=== PATIENT | female | born 2000 | race African-American/Black ===

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

== ENCOUNTER 2018-07-12 07:20 | Inpatient (IN) ==
[2018-07-12 07:47] LABS: URINE SOURCE VOIDED
[2018-07-12 07:49] LABS: BILIRUBIN URINE NEGATIVE (NEGATIVE); BLOOD URINE 4+ (NEGATIVE); CLARITY SL. CLOUDY (CLEAR); COLOR YELLOW; GLUCOSE URINE NEGATIVE (NEGATIVE); KETONE URINE NEGATIVE (NEGATIVE); LEUKOCYTES URINE 1+ (NEGATIVE); NITRITE URINE NEGATIVE (NEGATIVE); PROTEIN URINE 2+(100 mg/dL) mg/dL (NEGATIVE); SP GRAVITY URINE 1.015; UROBILINOGEN URINE NORMAL
[2018-07-12] MEDS ORDERED: TYLENOL PO PRN (08:45)
[2018-07-12] MEDS ORDERED: ZOFRAN IV PRN (08:45)
[2018-07-12] MEDS ORDERED: PITOCIN 30 UNITS/NS 30 UNIT/500 ML IV.SOLN IV SCH ×2 (08:45→16:30)
[2018-07-12] MEDS ORDERED: PEPCID IV PRN (08:45)
[2018-07-12] MEDS ORDERED: REGLAN PO ONE (08:45)
[2018-07-12] MEDS ORDERED: PEPCID PO PRN (08:45)
[2018-07-12] MEDS ORDERED: PEPCID PO ONE (08:45)
[2018-07-12] MEDS ORDERED: KEFZOL 1 GM/D5W 1 GM/50 ML IVPB IV PRN (08:45)
[2018-07-12] MEDS ORDERED: LR 500 ML IV ONE (08:45)
[2018-07-12] MEDS ORDERED: SODIUM CHLORIDE 0.9% INJ SCH (08:45)
[2018-07-12] MEDS ORDERED: MINERAL OIL PO ONE (08:50)
[2018-07-12] MEDS ORDERED: XYLOCAINE-MPF 1% INJ ONE (08:52)
[2018-07-12] MEDS ORDERED: PITOCIN 30 UNITS/NS 30 UNIT/500 ML IV.SOLN ONE (08:57)
[2018-07-12 09:01] LABS: BASO# 0.01 X1000 (0.0-0.2); BASO% 0.1 % (0.0-0.8); EOS# 0.08 X1000 (0.0-0.7); EOS% 0.7 % (0.0-10.0); HEMATOCRIT 32.9 % (37.0-47.0); HEMOGLOBIN 10.8 g/dL (12.0-16.0); IMM GRAN# 0.08 X1000 (0.0-0.04); IMM GRAN% 0.7 % (0.0-0.5); LYMPH# 2.89 X1000 (1.2-3.4); LYMPH% 24.8 % (20.5-51.1); MCHC 32.8 g/dL (33-37); MCV 88.4 FL (81-99); MONO# 0.91 X1000 (0.11-0.59); MONO% 7.8 % (1.7-9.3); MPV 11.1 FL (7.4-10.4); NEUT# 7.69 X1000 (1.4-6.5); NEUT% 65.9 % (42.2-75.2); PLT 208 X1000 (130-400); RBC 3.72 XMIL (4.2-5.4); RDW 13.6 % (11.5-14.5); WBC 11.66 X1000 (4.8-10.8)
[2018-07-12] MEDS: STADOL IV PRN ×2 (09:30→12:09)
[2018-07-12] MEDS: LR 1,000 ML IV SCH ×2 (09:31→11:19)
--- NOTE | 2018-07-12 09:57 | OB/GYN PROGRESS NOTE ---
Progress Note OB - . Patient Problems: Current Active Problems Problem Status Onset Intervention related to labor and delivery, current hospitalization Acute OB Progress Note: Laboratory Results - last 24 hr 07/12/18 07/12/18 07/12/18 07:20 07:30 08:40 WBC RBC Hgb Hct MCV MCH MCHC RDW Std Deviation Plt Count MPV Immature Gran % (Auto) Neut % (Auto) Lymph % (Auto) [place] % (Auto) Eos % (Auto) Baso % (Auto) Immature Gran # (Auto) Neut # (Auto) Lymph # (Auto) [place] # (Auto) Eos # (Auto) Baso # (Auto) Urine Source VOIDED Urine Color YELLOW Urine Clarity SL. CLOUDY A Urine pH 7.0 Ur Specific [place] 1.015 Urine Protein 2+(100 mg/dL) A Urine Ketones NEGATIVE Urine Blood 4+ Urine Nitrite NEGATIVE Urine Bilirubin NEGATIVE Urine Urobilinogen NORMAL Urine WBC 1+ A Urine Glucose NEGATIVE Membranes Rupture POSITIVE RPR NON-REACTIVE 07/12/18 08:40 WBC 11.66 H RBC 3.72 L Hgb 10.8 L Hct 32.9 L MCV 88.4 MCH 29.0 MCHC 32.8 L RDW Std Deviation 13.6 Plt Count 208 MPV 11.1 H Immature Gran % (Auto) 0.7 H Neut % (Auto) 65.9 Lymph % (Auto) 24.8 [place] % (Auto) 7.8 Eos % (Auto) 0.7 Baso % (Auto) 0.1 Immature Gran # (Auto) 0.08 H Neut # (Auto) 7.69 H Lymph # (Auto) 2.89 [place] # (Auto) 0.91 H Eos # (Auto) 0.08 Baso # (Auto) 0.01 Urine Source Urine Color Urine Clarity Urine pH Ur Specific [place] Urine Protein Urine Ketones Urine Blood Urine Nitrite Urine Bilirubin Urine Urobilinogen Urine WBC Urine Glucose Membranes Rupture RPR c/o painful contractions, declines epidural for now. 97.6 BP 110/82 P74 O2 sat 97% Cx: 4/70/-1/V/post CAT I strip w/ctx q 2-3 min; Pitocin augmentation 2 mu/min Assess: 40w2d IUP; labor with SROM, clear Plan: Continue Pitocin augmentation Analgesics as requested
--- NOTE | 2018-07-12 10:25 | HISTORY AND PHYSICAL ---
HISTORY OF PRESENT ILLNESS: Ms. Davis is a pleasant 17-year-old , 1, para 0, at 40 weeks 2 days, complaining of ruptured membranes at 7 a.m. on the day of admission. She was initially followed by [facility] until approximately 28 weeks, and then she became a patient of Dr. Roman with her last visit 1 week ago with him. Her progress has been normal without complications. She had a normal anatomy scan at approximately 20 weeks and a negative quad screen. Her initial care began at approximately 9 weeks of gestation, and her due date of 07/10/2018 was based on a 13-week ultrasound. LABORATORIES: Her labs include O positive blood type. RPR and hepatitis surface antigen screen are both negative. HIV is nonreactive. Chlamydia and GC screen was negative. Glucola was 89, which was normal. Her group B strep is negative. ALLERGIES: Cephalexin, producing a rash and itching without anaphylactic type reaction. PAST MEDICAL HISTORY: Childhood asthma, essentially no longer active. Otherwise, negative for chronic disease. PAST SURGICAL HISTORY: None. SOCIAL HISTORY: She is single. Denies cigarettes, alcohol, or other drug use. FAMILY HISTORY: Significant for diabetes and hypertension. REVIEW OF SYSTEMS: Positive for leaking membrane fluid and contractions since 1 a.m. on the day of admission. She denies fever, chills, nausea, vomiting. PHYSICAL EXAMINATION: VITAL SIGNS: On physical exam, she is afebrile. Blood pressure 110/72, pulse 74, oxygen saturation over 95%. Weight is 220 pounds with a height of 5 feet 3 inches. LUNGS: Clear to auscultation. CARDIOVASCULAR: Regular rate. ABDOMEN/PELVIS: Antwan maneuver reveals estimated weight is 6-1/2 to 7 pounds. Cervix is 4 cm, 70%, posterior with forebag, and vertex at -1 station. Positive leaking fluid has been documented. DIAGNOSTIC DATA: Her hemoglobin is 10.8 on admission with a platelet count of 208,000. Urine is essentially negative. Contractions are every 3 to 4 minutes without augmentation. Her strip is category 1. ASSESSMENT: Intrauterine , 40 weeks 2 days, primigravida, active labor. PLAN: Admit for labor, augmentation if necessary. Analgesics provided as requested. She is initially declining epidural anesthesia. She will be allowed a clear liquid diet. She is agreeable to treatment as seen fit and has signed consent for possible section and blood transfusions if those needs should arrive. At this time, we anticipate a vaginal delivery. cc: Risa Garner MD
--- NOTE | 2018-07-12 12:12 | OB/GYN PROGRESS NOTE ---
Progress Note OB - . Patient Problems: Current Active Problems Problem Status Onset Spontaneous rupture of membranes Acute Intervention related to labor and delivery, current hospitalization Acute Intrauterine Acute OB Progress Note: Vital Signs - 24 hr 07/12/18 07:34 Temperature 98.0 F Pulse Rate 92 H Respiratory Rate 20 Blood Pressure 122/67 O2 Sat by Pulse Oximetry 99 Laboratory Results - last 24 hr 07/12/18 07/12/18 07/12/18 07:20 07:30 08:40 WBC RBC Hgb Hct MCV MCH MCHC RDW Std Deviation Plt Count MPV Immature Gran % (Auto) Neut % (Auto) Lymph % (Auto) [place] % (Auto) Eos % (Auto) Baso % (Auto) Immature Gran # (Auto) Neut # (Auto) Lymph # (Auto) [place] # (Auto) Eos # (Auto) Baso # (Auto) Urine Source VOIDED Urine Color YELLOW Urine Clarity SL. CLOUDY A Urine pH 7.0 Ur Specific [place] 1.015 Urine Protein 2+(100 mg/dL) A Urine Ketones NEGATIVE Urine Blood 4+ Urine Nitrite NEGATIVE Urine Bilirubin NEGATIVE Urine Urobilinogen NORMAL Urine WBC 1+ A Urine Glucose NEGATIVE Membranes Rupture POSITIVE RPR NON-REACTIVE Blood Type Antibody Screen 07/12/18 07/12/18 08:40 08:40 WBC 11.66 H RBC 3.72 L Hgb 10.8 L Hct 32.9 L MCV 88.4 MCH 29.0 MCHC 32.8 L RDW Std Deviation 13.6 Plt Count 208 MPV 11.1 H Immature Gran % (Auto) 0.7 H Neut % (Auto) 65.9 Lymph % (Auto) 24.8 [place] % (Auto) 7.8 Eos % (Auto) 0.7 Baso % (Auto) 0.1 Immature Gran # (Auto) 0.08 H Neut # (Auto) 7.69 H Lymph # (Auto) 2.89 [place] # (Auto) 0.91 H Eos # (Auto) 0.08 Baso # (Auto) 0.01 Urine Source Urine Color Urine Clarity Urine pH Ur Specific [place] Urine Protein Urine Ketones Urine Blood Urine Nitrite Urine Bilirubin Urine Urobilinogen Urine WBC Urine Glucose Membranes Rupture RPR Blood Type O POSITIVE Antibody Screen NEGATIVE c/o more uncomfortable contractions. VS as above, stable Cx: 5/80/ant/Vtx/-1 Ctx q 2-3 min, CAT I w/baseline 130 bpm Assess: 40w2d IUP, labor w/SROM, augmented with Pit @ 6 mu/min Adequate progress since my last exam Plan: Continue Pitocin to achieve 2-3 min interval contractions w/ tolerance Minimize cervical exams with mine Epidural if requested, continue IV analgesics as desired Anticipate
[2018-07-12] MEDS ORDERED: FENTANYL-BUPIV-NS 2 MCG-0.1% 200 ML EPIDURAL PRN (14:10)
[2018-07-12] MEDS ORDERED: MARCAINE 0.25% PF INJ ONE (14:15)
--- NOTE | 2018-07-12 15:10 | OB/GYN PROGRESS NOTE ---
Progress Note OB - . Patient Problems: Current Active Problems Problem Status Onset Spontaneous rupture of membranes Acute Intervention related to labor and delivery, current hospitalization Acute Intrauterine Acute OB Progress Note: Vital Signs - 24 hr 07/12/18 07:34 07/12/18 08:46 07/12/18 12:00 Temperature 98.0 F 98.0 F 95.8 F L Pulse Rate 92 H 92 H 84 Respiratory Rate 20 20 22 Blood Pressure 122/67 122/67 114/56 O2 Sat by Pulse Oximetry 99 99 97 Laboratory Results - last 24 hr 07/12/18 07/12/18 07/12/18 07:20 07:30 08:40 WBC RBC Hgb Hct MCV MCH MCHC RDW Std Deviation Plt Count MPV Immature Gran % (Auto) Neut % (Auto) Lymph % (Auto) [place] % (Auto) Eos % (Auto) Baso % (Auto) Immature Gran # (Auto) Neut # (Auto) Lymph # (Auto) [place] # (Auto) Eos # (Auto) Baso # (Auto) Urine Source VOIDED Urine Color YELLOW Urine Clarity SL. CLOUDY A Urine pH 7.0 Ur Specific [place] 1.015 Urine Protein 2+(100 mg/dL) A Urine Ketones NEGATIVE Urine Blood 4+ Urine Nitrite NEGATIVE Urine Bilirubin NEGATIVE Urine Urobilinogen NORMAL Urine WBC 1+ A Urine Glucose NEGATIVE Membranes Rupture POSITIVE RPR NON-REACTIVE Blood Type Antibody Screen 07/12/18 07/12/18 08:40 08:40 WBC 11.66 H RBC 3.72 L Hgb 10.8 L Hct 32.9 L MCV 88.4 MCH 29.0 MCHC 32.8 L RDW Std Deviation 13.6 Plt Count 208 MPV 11.1 H Immature Gran % (Auto) 0.7 H Neut % (Auto) 65.9 Lymph % (Auto) 24.8 [place] % (Auto) 7.8 Eos % (Auto) 0.7 Baso % (Auto) 0.1 Immature Gran # (Auto) 0.08 H Neut # (Auto) 7.69 H Lymph # (Auto) 2.89 [place] # (Auto) 0.91 H Eos # (Auto) 0.08 Baso # (Auto) 0.01 Urine Source Urine Color Urine Clarity Urine pH Ur Specific [place] Urine Protein Urine Ketones Urine Blood Urine Nitrite Urine Bilirubin Urine Urobilinogen Urine WBC Urine Glucose Membranes Rupture RPR Blood Type O POSITIVE Antibody Screen NEGATIVE c/o pelvic pressure, requesting epidural VS as above Cx: /0/V Ctx q 2-3 min, CAT I Assess: s/p epidural with relief of active labor pain Plan: Anticipate
[2018-07-12] MEDS ORDERED: BENADRYL IV PRN (16:25)
[2018-07-12] MEDS ORDERED: M-M-R II VACCINE SUBQ ONE (16:25)
[2018-07-12] MEDS ORDERED: AMBIEN PO PRN (16:25)
[2018-07-12] MEDS ORDERED: ATARAX PO PRN (16:25)
[2018-07-12] MEDS ORDERED: PERI MEDS (DERMOPLAST/NUPERCAINAL/TUCKS) MISC PRN (16:25)
[2018-07-12] MEDS ORDERED: CYTOTEC PO PRN (16:25)
[2018-07-12] MEDS ORDERED: PITOCIN IM PRN (16:25)
[2018-07-12] MEDS ORDERED: BENADRYL PO PRN (16:25)
[2018-07-12] MEDS ORDERED: HYDROXYZINE IM PRN (16:25)
[2018-07-12] MEDS ORDERED: BOOSTRIX VACCINE IM ONE (16:25)
[2018-07-12] MEDS ORDERED: XYLOCAINE-MPF 1% INJ PRN (16:25)
[2018-07-12] MEDS ORDERED: MINERAL OIL PO PRN (16:25)
[2018-07-12] MEDS ORDERED: PITOCIN 20 UNITS/NS 20 UNITS/1,000 ML IV.SOLN IV SCH (16:30)
--- NOTE | 2018-07-12 16:38 | OB/GYN PROGRESS NOTE ---
Progress Note OB - . Patient Problems: Current Active Problems Problem Status Onset Spontaneous rupture of membranes Acute Intervention related to labor and delivery, current hospitalization Acute Intrauterine Acute OB Progress Note: Vital Signs - 24 hr 07/12/18 07:34 07/12/18 08:46 07/12/18 12:00 Temperature 98.0 F 98.0 F 95.8 F L Pulse Rate 92 H 92 H 84 Respiratory Rate 20 20 22 Blood Pressure 122/67 122/67 114/56 O2 Sat by Pulse Oximetry 99 99 97 Laboratory Results - last 24 hr 07/12/18 07/12/18 07/12/18 07:20 07:30 08:40 WBC RBC Hgb Hct MCV MCH MCHC RDW Std Deviation Plt Count MPV Immature Gran % (Auto) Neut % (Auto) Lymph % (Auto) [place] % (Auto) Eos % (Auto) Baso % (Auto) Immature Gran # (Auto) Neut # (Auto) Lymph # (Auto) [place] # (Auto) Eos # (Auto) Baso # (Auto) Urine Source VOIDED Urine Color YELLOW Urine Clarity SL. CLOUDY A Urine pH 7.0 Ur Specific [place] 1.015 Urine Protein 2+(100 mg/dL) A Urine Ketones NEGATIVE Urine Blood 4+ Urine Nitrite NEGATIVE Urine Bilirubin NEGATIVE Urine Urobilinogen NORMAL Urine WBC 1+ A Urine Glucose NEGATIVE Membranes Rupture POSITIVE RPR NON-REACTIVE Blood Type Antibody Screen 07/12/18 07/12/18 08:40 08:40 WBC 11.66 H RBC 3.72 L Hgb 10.8 L Hct 32.9 L MCV 88.4 MCH 29.0 MCHC 32.8 L RDW Std Deviation 13.6 Plt Count 208 MPV 11.1 H Immature Gran % (Auto) 0.7 H Neut % (Auto) 65.9 Lymph % (Auto) 24.8 [place] % (Auto) 7.8 Eos % (Auto) 0.7 Baso % (Auto) 0.1 Immature Gran # (Auto) 0.08 H Neut # (Auto) 7.69 H Lymph # (Auto) 2.89 [place] # (Auto) 0.91 H Eos # (Auto) 0.08 Baso # (Auto) 0.01 Urine Source Urine Color Urine Clarity Urine pH Ur Specific [place] Urine Protein Urine Ketones Urine Blood Urine Nitrite Urine Bilirubin Urine Urobilinogen Urine WBC Urine Glucose Membranes Rupture RPR Blood Type O POSITIVE Antibody Screen NEGATIVE Living female , 7#11, 03/19, delivered in OA position. Midline second degree laceration, repaired. Delivery note dictated.
[2018-07-12] MEDS: MOTRIN PO PRN (21:09)
[2018-07-12] MEDS: NORCO-5 PO PRN (21:10)
[2018-07-12] MEDS: PERICOLACE PO SCH (21:10)
[2018-07-13] MEDS: NORCO-5 PO PRN ×3 (02:06→20:55)
--- NOTE | 2018-07-13 04:14 | OPERATIVE NOTE ---
PROCEDURE DATE: 07/12/2018 DELIVERY SUMMARY AND PROCEDURE REPORT: Living female delivered in OA position, without shoulder dystocia. The infant weighed 7 pounds 11 ounces, and Apgars of 9 and 10 at one and five minutes respectively were given. The was immediately laid on the mother' s abdomen, and the cord was clamped and cut after 60 seconds. A 3-vessel cord was noted. Cord blood was obtained prior to the delivery of the placenta, and given to the nursery nurses. The infant was cared for by the nursery personnel present, and was instantly vigorous. Placenta was manually expressed intact, and discarded. Midline second-degree laceration was noted to approximately 4 cm. This was repaired with a 3-0 Vicryl and found to be hemostatic. Estimated blood loss 300 mL. Fundus was firm post delivery. The mother was stable and the infant vigorous in recovery. Anesthesia was epidural , which was adequate for the delivery. Time of delivery was 4:07 p.m. on 07/12/2018. All needle, sponge, and instrument counts were correct x 2. cc: Risa Garner MD MTDD
[2018-07-13] MEDS: MOTRIN PO PRN ×2 (05:33→16:10)
[2018-07-13 07:01] LABS: HEMATOCRIT 27.6 % (37.0-47.0); HEMOGLOBIN 8.8 g/dL (12.0-16.0); MCH 28.6 PG (27-31); MCHC 31.9 g/dL (33-37); MCV 89.6 FL (81-99); MPV 11.6 FL (7.4-10.4); RBC 3.08 XMIL (4.2-5.4); RDW 13.5 % (11.5-14.5); WBC 14.25 X1000 (4.8-10.8)
--- NOTE | 2018-07-13 07:19 | OB/GYN PROGRESS NOTE ---
Progress Note OB - . Patient Problems: Current Active Problems Problem Status Onset Spontaneous rupture of membranes Acute Intervention related to labor and delivery, current hospitalization Acute Intrauterine Acute OB Progress Note: Vital Signs - 24 hr 07/12/18 07:34 07/12/18 08:46 07/12/18 12:00 Temperature 98.0 F 98.0 F 95.8 F L Pulse Rate 92 H 92 H 84 Respiratory Rate 20 20 22 Blood Pressure 122/67 122/67 114/56 Blood Pressure [Left Arm] O2 Sat by Pulse Oximetry 99 99 97 07/12/18 14:00 07/12/18 16:30 07/12/18 16:40 Temperature 96.2 F L Pulse Rate 92 H 78 92 H Respiratory Rate 22 22 Blood Pressure 99/58 110/77 Blood Pressure [Left Arm] 96/54 94/52 O2 Sat by Pulse Oximetry 100 100 96 07/12/18 16:50 07/12/18 17:00 07/12/18 17:10 Temperature Pulse Rate 71 77 78 Respiratory Rate 20 20 20 Blood Pressure Blood Pressure [Left Arm] 99/53 96/52 99/54 O2 Sat by Pulse Oximetry 100 99 97 07/12/18 17:20 07/12/18 17:30 07/12/18 20:00 Temperature 96.9 F L Pulse Rate 77 92 H 85 Respiratory Rate 20 22 18 Blood Pressure 109/57 Blood Pressure [Left Arm] 96/52 99/58 O2 Sat by Pulse Oximetry 98 100 100 07/13/18 00:00 07/13/18 04:00 Temperature 98.5 F 98.1 F Pulse Rate 73 78 Respiratory Rate 18 18 Blood Pressure 110/51 109/58 Blood Pressure [Left Arm] O2 Sat by Pulse Oximetry 93 L 96 Laboratory Results - last 24 hr 07/12/18 07/12/18 07/12/18 07:20 07:30 08:40 WBC RBC Hgb Hct MCV MCH MCHC RDW Std Deviation Plt Count MPV Immature Gran % (Auto) Neut % (Auto) Lymph % (Auto) [place] % (Auto) Eos % (Auto) Baso % (Auto) Immature Gran # (Auto) Neut # (Auto) Lymph # (Auto) [place] # (Auto) Eos # (Auto) Baso # (Auto) Urine Source VOIDED Urine Color YELLOW Urine Clarity SL. CLOUDY A Urine pH 7.0 Ur Specific [place] 1.015 Urine Protein 2+(100 mg/dL) A Urine Ketones NEGATIVE Urine Blood 4+ Urine Nitrite NEGATIVE Urine Bilirubin NEGATIVE Urine Urobilinogen NORMAL Urine WBC 1+ A Urine Glucose NEGATIVE Membranes Rupture POSITIVE RPR NON-REACTIVE Blood Type Antibody Screen 07/12/18 07/12/18 07/13/18 08:40 08:40 05:23 WBC 11.66 H 14.25 H RBC 3.72 L 3.08 L Hgb 10.8 L 8.8 L D Hct 32.9 L 27.6 L MCV 88.4 89.6 MCH 29.0 28.6 MCHC 32.8 L 31.9 L RDW Std Deviation 13.6 13.5 Plt Count 208 168 MPV 11.1 H 11.6 H Immature Gran % (Auto) 0.7 H Neut % (Auto) 65.9 Lymph % (Auto) 24.8 [place] % (Auto) 7.8 Eos % (Auto) 0.7 Baso % (Auto) 0.1 Immature Gran # (Auto) 0.08 H Neut # (Auto) 7.69 H Lymph # (Auto) 2.89 [place] # (Auto) 0.91 H Eos # (Auto) 0.08 Baso # (Auto) 0.01 Urine Source Urine Color Urine Clarity Urine pH Ur Specific [place] Urine Protein Urine Ketones Urine Blood Urine Nitrite Urine Bilirubin Urine Urobilinogen Urine WBC Urine Glucose Membranes Rupture RPR Blood Type O POSITIVE Antibody Screen NEGATIVE No complaints VS as above Alert, oriented Lungs CTA Fundus firm, NT Calves NT Lochia decreased Hgb 8.8 O positive Assess: PPD#1 s/p at term doing well Plan: Continue care Anticipate discharge tomorrow
[2018-07-13] MEDS ORDERED: PERCOCET-5 PO PRN (08:40)
[2018-07-13] MEDS: PERICOLACE PO SCH (21:00)
[2018-07-14 08:07] VITALS: BP 121/66
[2018-07-14] MEDS: MOTRIN PO PRN (09:11)
--- NOTE | 2018-07-14 10:09 | PROGRESS NOTE ---
DATE: 07/14/2018 SUBJECTIVE: No complaints. Denies PIH or orthostatic symptoms. OBJECTIVE: Temperature is 97.8, heart rate 75, respirations 20, blood pressure 117/60, O2 saturation is 99% on room air. General: Alert and oriented, no acute distress. Pulmonary: Clear to auscultation bilaterally. Cardiovascular: Regular rate and rhythm. Abdomen: Soft, nondistended, nontender. Fundus firm. Normal lochia. No cyanosis, clubbing or edema. DIAGNOSTIC DATA: White count is 14.2, hemoglobin 8.8, hematocrit 27.6, platelets 168. ASSESSMENT: Ms. Davis is a 17-year-old 1, para 1, day number 2, status post spontaneous vaginal delivery with normal EBL. PLAN: We will discharge home. Follow up with Dr. Deras in 6 weeks. cc: MD Risa Roberts MD
== END 2018-07-14 10:30 | disposition home or self-care (01) | DRG 807 ==
LOC: P.OPLD 07:20 → P.LD 07:22
PROVIDERS: ADMIT Obstetrics & Gynecology; ATTEND Obstetrics & Gynecology
CPT/HCPCS: 59025; 81003; 82016; 82017; 82128; 82139; 82247; 82261; 82775; 82776; 83020; 83021; 83498; 83520; 83788; 83789; 84030; 84112; 84437; 84443; 84510; 85025; 85027; 86592; 86850; 86880; 86900; 86901; 90744; A9270; J0595; J2590; J3430; J7120